=== PATIENT | male | born 1945 | race Caucasian/White ===

== ENCOUNTER 2020-12-11 14:54 | Outpatient (CLI) | payer MEDICARE, SELFPAY ==
--- NOTE | ~2020-12-11 | CT_ITS ---
EXAMINATION: CT abdomen pelvis wo con DATE: 12/11/2020 15:24 INDICATION: Right-sided abdominal pain. Renal calculus. TECHNIQUE: Computed tomography (CT) of the abdomen and pelvis was performed without intravenous contr ast. Automated exposure control and iterative reconstruction technique were employed. Exam dose: 687 .15 mGy-cm total exam DLP. COMPARISON: 12/11/2020 [facility] 09/25/[address] abdomen pelvis FINDINGS: Elevated right diaphragm and atelectasis at the right lung base. Normal heart size. Coronary artery calcifications. No pericardial or pleural effusion. Status post cholecystectomy. There is some surface nodularity of liver suggesting possible cirrhosis. Clinical correlation is advi sed. No hepatic space-occupying mass lesion is evident. Normal splenic size. Accessory splenules are noted. No pancreatic mass lesion, calcification or ductal dilatation. No dilatation of the bile duct. Normal morphology of the adrenal glands. No renal mass lesion or urinary tract calculus or hydroureteronephrosis is evident on this limited no ncontrast examination. There is calcification of the abdominal aorta, origins of celiac artery, extensive superior mesenteri c artery calcification. Prominent calcification of the origins of the renal arteries. No intraperitoneal or retroperitoneal or pelvic mass lesion or adenopathy or ascites. There is prostate enlargement and calcification. There is moderate diffuse thickening of the urinary bladder wall. No evidence of appendicitis. Minimal diverticulosis of the sigmoid colon; no CT evidence of diverticu litis. No bowel obstruction, bowel wall thickening, pneumatosis or intraperitoneal free air. Degenerative changes of the thoracic and lumbar spine. No suspicious osteolytic or osteoblastic lesio ns are noted. IMPRESSION: No urinary tract calculus or hydroureteronephrosis is detected Elevated right diaphragm and associated atelectasis at right lung base Coronary artery atherosclerosis, abdominal aortic and renal and celiac and superior mesenteric athero sclerotic calcification Surface nodularity of liver suggesting cirrhosis Minimal colonic diverticulosis Reviewed, dictated and finalized at [facility]. Reviewed, dictated and finalized at [facility]. IMPRESSION: No urinary tract calculus or hydroureteronephrosis is detected Elevated right diaphragm and associated atelectasis at right lung base Coronary artery atherosclerosis, abdominal aortic and renal and celiac and supe rior mesenteric atherosclerotic calcification Surface nodularity of liver suggesting cirrhosis Minimal colonic diverticulosis
--- NOTE | ~2020-12-11 | XR_ITS ---
XR abdomen/[facility] 1V DATE: 12/11/2020 15:21 INDICATION: Kidney calculus TECHNIQUE: AP projection, 2 views COMPARISON: 12/11/[address] abdomen pelvis FINDINGS: No urinary tract calculus is demonstrated on the of noncontrast CT abdomen pel vis. The psoas shadows are intact. No visceromegaly. Surgical clips, right upper quadrant, consistent with cholecystectomy. No evidence of bowel obstruction. IMPRESSION: Nonspecific abdomen Reviewed, dictated and finalized at [facility]. Reviewed, dictated and finalized at [facility]. IMPRESSION: Nonspecific abdomen
== END 2020-12-11 14:55 | disposition home or self-care (01) ==
LOC: ANHIMG 15:02
PROVIDERS: PCP Internal Medicine; Visit Provider Urology
DX: N20.0 Calculus of kidney (principal); I25.10 Atherosclerotic heart disease of native coronary artery without angina pectoris
CPT/HCPCS: 74018; 74176